=== PATIENT | female | born 1960 | race Asian ===

== ENCOUNTER 2016-09-27 08:11 | Emergency (ER) | payer OTHER ==
--- NOTE | 2016-09-27 08:42 | ED Physician Chart ---
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 SHE FELL HITTING HER RIGHT HIP AND RIGHT ELBOW. THIS MORNING HER NECK, RIGHT ELBOW AND RIGHT HIP START HURTING. SHE DENIES ALL OTHER INJURIES. THE RIGHT ANKLE IS ALSO SORE. Allergies:: Allergies Allergy/AdvReac Type Severity Reaction Status Date / Time No Known Allergies Allergy Verified 09/27/16 08:35 Historian:: Patient Review:: Nurse's Note Reviewed Review of Systems - Review of Systems General/Constitutional: No fever, No chills, No weight loss, No weakness, No diaphoresis, No edema, No loss of appetite Skin: No skin lesions, No rash, No bruising Head: No headache, No light-headedness Eyes: No loss of vision, No pain, No diplopia ENT: No earache, No nasal drainage, No sore throat, No tinnitus Neck: Neck pain, No swelling, No thyromegaly, No stiffness, No mass noted Cardio Vascular: No chest pain, No palpitations, No PND, No orthopnea, No edema Pulmonary: No SOB, No cough, No sputum, No wheezing GI: No nausea, No vomiting, No diarrhea, No pain, No melena, No hematochezia, No constipation, No hematemesis G/U: No dysuria, No frequency, No hematuria Musculoskeletal: Bone or joint pain (RIGHT ELBOW IS TENDER. THE RIGHT HIP IS PAINFUL ON PALPATION AND MOVEMENT.), No back pain, No muscle pain Endocrine: No polyuria, No polydipsia Psychiatric: No prior psych history, No depression, No anxiety, No suicidal ideation Hematopoietic: No bruising, No lymphadenopathy Allergic/Immuno: No urticaria, No angioedema Neurological: No syncope, No focal symptoms, No weakness, No paresthesia, No headache, No seizure, No dizziness, No confusion, No vertigo Past Medical History - Past Medical History Obtainable: Yes Past Medical History: No significant medical hx Family History: None Social History: Non Smoker, No Alcohol, No Drug Use Surgical History: None Psychiatricy History: None Medication: Reviewed Family Medical History - Family Member Mother History Unknown: Yes Hx Family Hypertension: Yes Hx Family Diabetes: Yes Physical Exam - Physical Examination General/Constitutional: Awake, Well-developed, well-nourished, Alert, No distress, GCS 15, Non-toxic appearing, Ambulatory Head: Atraumatic Eyes: Lids, conjuctiva normal, PERRL, EOMI Skin: Nl inspection, No rash, No skin lesions, No ecchymosis, Well hydrated, No lymphadenopathy ENMT: External ears, nose nl, Nasal exam nl, Lips, teeth, gums nl Neck: No JVD, No nuchal rigidity, No bruit, No mass, No stridor Other Neck comments:: THERE IS SOME TENDERNESS OF THE POSTERIOR SPINE WITH PAINFUL BUT NORMAL ROM. THERE IS SOME SWELLING AND TENDERNESS OF THE RIGHT ELBOW. THERE IS TENDERNESS OVER THE RIGHT HIP JOINT AREA WITH PAINFUL ROM. THE SENSORY AND CIRCULATION ARE BOTH NORMAL. Respiratory: Nl effort/Exclusion, Clear to Auscultation, No Wheeze/Rhonchi/Rales Cardio Vascular: RRR, No murmur, gallop, rubs, NL S1 S2 GI: No tenderness/rebounding/guarding, No organomegaly, No hernia, Normal BS's, Nondistended, No mass/bruits, No McBurney tenderness : No CVA tenderness Extremities: Full ROM, normal strength in all extremities, No edema, Normal digits & nails Other Extremities comments:: THERE IS TENDERNESS AND PAINFUL BUT NORMAL ROM OF THE RIGHT HIP THERE IS TENDERNESS OF THE CERVICAL SPINE. THERE IS SLIGHT SWELLING OF THE ELBOW WITH TENDERNESS. THERE IS SLIGHT TENDERNESS OF THE RIGHT ANKLE. Neuro/Psych: Alert/oriented, DTR's symmetric, Normal sensory exam, Normal motor strength, Judgement/insight normal, Mood normal, Normal gait, No focal deficits Misc: normal gait, Normal back, No paraspinal tenderness Labs/Radiology/EKG Results - Radiology Results Results: THE X-RAY OF THE CERVICAL SPINE, RIGHT ELBOW, RIGHT ANKLE AND RIGHT HIP WERE ALL NEGATIVE FOR FRACTURES. ED Septic Shock - . Is Septic Shock (SBP<90, OR Lactate>4 mmol\L) present?: No Reassessment (Disposition) - Reassessment Reassessment Condition:: Improved - Diagnosis Diagnosis:: CONTUSION AND STRAIN OF THE RIGHT HIP CERVICAL STRAIN RIGHT ELBOW CONTUSION RIGHT ANKLE STRAIN - Aftercare/Follow up Instructions Aftercare/Follow-Up Instructions:: Counseled pt regarding lab results/diagnosis & need follow up, Refer to Discharge Instructions, Counseled pt & family regarding lab results/diagnosis & need follow up Medication Prescribed:: MOTRIN - Patient Disposition Discharge/Transfer:: Home Condition at Disposition:: Improved ED Discharge Plan - Patient Disposition Admit/Discharge/Transfer: PT DISCHARGED HOME Condition at Disposition: Improved Prescriptions: Ibuprofen [Motrin] 600 mg PO Q8H PRN #0 tab PRN Reason: pain
--- NOTE | 2016-09-27 10:47 | Diagnostic Imaging Report ---
Cervical spine (4 views) HISTORY: Pain There is reversal of the cervical lordosis that may be associated with spasm. Alignment is maintained. Degenerative spur formation noted about the endplates of C3-4, C5, C6. Narrowing of the C5-6 disc space. No acute abnormalities. No fractures. The prevertebral soft tissues appear normal. IMPRESSION: 1. Degenerative changes most pronounced at C4-5 and C5-6. 2. Reversal of the cervical lordosis that may be associated with spasm.
--- NOTE | 2016-09-27 10:48 | Diagnostic Imaging Report ---
Right hip (3 views) HISTORY: Pain Joint space appears normal. No focal lesions. The femoral head exhibits a normal contour. IMPRESSION: No acute abnormalities
--- NOTE | 2016-09-27 10:49 | Diagnostic Imaging Report ---
Right elbow (3 views) HISTORY: Pain No acute bony abnormalities are seen. No fractures. Minimal spur formation noted about the medial and lateral epicondyle regions. No radiographic evidence of a joint effusion. IMPRESSION: No acute abnormalities
--- NOTE | 2016-09-27 10:51 | Diagnostic Imaging Report ---
Right ankle (3 views) HISTORY: Pain Soft tissue swelling noted over the lateral aspect of the ankle. A well-corticated subcentimeter calcific density is noted adjacent to the inferior margin of the lateral malleolus. This appears chronic. No acute fractures are seen. Spur formation is noted off the dorsal aspect of the posterior calcaneus. IMPRESSION: 1. Soft tissue swelling over the lateral aspect of the ankle 2. Calcific density adjacent to the inferior margin of the lateral malleolus that appears chronic 3. Calcaneal spur formation 4. No definite acute abnormalities. In the presence of recent trauma and persistent symptoms, a repeat radiograph in 5-7 days may be helpful for detection of a subtle or occult fracture.
== END 2016-09-27 11:00 | disposition home or self-care (01) ==
LOC: ER 08:11 → EEVIPCON 08:11 → ER 11:00
DX: S76.011A Strain of muscle, fascia and tendon of right hip, initial encounter (principal); S16.1XXA Strain of muscle, fascia and tendon at neck level, initial encounter; S96.911A Strain of unspecified muscle and tendon at ankle and foot level, right foot, initial encounter; S50.01XA Contusion of right elbow, initial encounter; W18.39XA Other fall on same level, initial encounter; Y93.89 Activity, other specified; Y92.89 Other specified places as the place of occurrence of the external cause; Y99.8 Other external cause status
CPT/HCPCS: 72040-TC; 73070-TC-RT; 73610-RT-TC; Z7502